=== PATIENT | male | born 1980 | race Caucasian/White ===

== ENCOUNTER 2019-05-14 06:49 | Emergency (ER) | payer SELFPAY ==
[2019-05-14 07:14] LABS: ADD MAN DIFF? NO
[2019-05-14 07:16] LABS: BASOPHILS % 0.5 % (0.0-2.0); EOSINOPHILS # 0.1 10^3/ul (0.0-0.5); HEMATOCRIT 41.1 % (42.0-52.0); LYMPHOCYTES # 2.4 10^3/ul (0.8-2.9); LYMPHOCYTES % 37.9 % (15.0-51.0); MEAN CORPUSCULAR HEMOGLOBIN 30.3 pg (29.0-33.0); MEAN CORPUSCULAR HGB CONC 34.1 g/dl (32.0-37.0); MEAN PLATELET VOLUME 11.1 fl (7.4-10.4); MONOCYTE # 0.6 10^3/ul (0.3-0.9); NEUTROPHIL # 3.2 10^3/ul (1.6-7.5); NEUTROPHILS % 51.3 % (39.0-77.0); PLATELET COUNT 313 10^3/UL (140-415); RED BLOOD COUNT 4.62 10^6/ul (4.70-6.10); RED CELL DISTRIBUTION WIDTH 13.8 % (11.5-14.5)
[2019-05-14 07:16] LABS: WHITE BLOOD COUNT 6.2 10^3/ul (4.8-10.8)
[2019-05-14 07:34] LABS: INR 0.97
[2019-05-14 07:35] LABS: PARTIAL THROMBOPLASTIN TIME 28.1 Sec (23.0-35.0)
[2019-05-14 07:59] LABS: ANION GAP 9 (5-13); BLOOD UREA NITROGEN 13 mg/dl (7-20); CALCIUM 8.9 mg/dl (8.4-10.2); CARBON DIOXIDE 28 mmol/L (21-31); CHLORIDE 107 mmol/L (97-110); CREATININE 0.86 mg/dl (0.61-1.24); Estimated GFR > 60 mL/min (>60); GLUCOSE 107 mg/dl (70-220); POTASSIUM 3.8 mmol/L (3.5-5.1); SODIUM 144 mmol/L (135-144)
[2019-05-14 08:01] LABS: ETHANOL < 10.0 mg/dl (0-0)
[2019-05-14] MEDS: SOD CHLORIDE 0.9% 100 ML (09:25)
[2019-05-14] MEDS: IOHEXOL 300MG/ML 150 ML BTL (09:25)
[2019-05-14] MEDS: BACITRACIN 0.9 GM OINT TOP (12:55)
== END 2019-05-14 14:15 | disposition home or self-care (01) ==
LOC: E/R 06:49
DX: S06.0X0A Concussion without loss of consciousness, initial encounter (principal); S00.81XA Abrasion of other part of head, initial encounter; V18.4XXA Pedal cycle driver injured in noncollision transport accident in traffic accident, initial encounter; Y92.410 Unspecified street and highway as the place of occurrence of the external cause
CPT/HCPCS: 36415; 70450; 71260; 72125; 74177; 80048; 80307; 85025; 85610; 85730; 99285-25